=== PATIENT | female | born 1995 | race Caucasian/White ===

== ENCOUNTER 2020-12-10 17:20 | Emergency (ER) | payer OTHER ==
[~2020-12-10] VITALS: Ht 157.5 cm; Wt 69.9 kg
--- NOTE | 2020-12-10 17:26 | NUR ---
PT BIBRA FROM HOME TO ER BED 03, HERE FOR DIZZINESS AND NEAR SYNCOPAL EPISODE. PER EMS INITIAL BLOOD GLUCOSE READ WAS 50. PT ATE A SLICE OF WATER[place]ELON AND HER BG WAS 80 PERSONAL INJURY LEGAL ASSISTANT. PT HYPOTENSIVE B UT PER EMS HER SYSTOLIC BP ALWAYS RUNS LOW. 15 WEEKS . DENIES ANY RELATED COMPLAINTS. AWAITING MD GARCIA.
--- NOTE | 2020-12-10 17:29 | NUR ---
SHRUTIP PA AT BEDSIDE FOR EVAL.
[2020-12-10] MEDS ORDERED: IV NS 0.9% 1,000 ML BAG IV ONE (17:30)
--- NOTE | 2020-12-10 17:50 | NUR ---
U/S TECH AT BEDSIDE FOR PELVIC ULTRASOUND.
[2020-12-10 17:53] LABS: BASOPHILS % (AUTO) 0.4 % (0.0-2.0); EOSINOPHILS % (AUTO) 0.7 % (0.0-6.0); HEMATOCRIT 31 % (33-45); HEMOGLOBIN 10.4 g/dL (11.5-14.8); LYMPHOCYTES # (AUTO) 2.2 K/uL (0.8-4.8); LYMPHOCYTES % (AUTO) 21.6 % (20.0-44.0); MEAN CORPUSCULAR HGB CONC 34 g/dl (31.0-36.0); MEAN CORPUSCULAR VOLUME 86 fL (82-100); MONOCYTES # (AUTO) 0.8 K/uL (0.1-1.30); MONOCYTES % (AUTO) 8.3 % (2.0-12.0); PLATELET COUNT (AUTO) 225 K/uL (150-450); RED BLOOD CELL COUNT(AUTO) 3.61 MIL/uL (4.0-5.2); WHITE BLOOD COUNT (AUTO) 10.2 K/uL (4.3-11.0)
[2020-12-10 18:02] LABS: CALCIUM, SERUM 8.6 mg/dL (8.5-10.1); CREATININE 0.5 mg/dL (0.6-1.3); POTASSIUM 3.7 mmol/L (3.5-5.1)
--- NOTE | 2020-12-10 19:07 | NUR ---
Patient discharged to home in stable condition. Written and verbal after care instructions given. Patient verbalizes understanding of instruction. IV removed. Catheter intact and site benign. Pressure and 4x4 applied to site. No bleeding noted. pT ambulatory with a steady gait
[2020-12-10 19:12] VITALS: BP 100/60
== END 2020-12-10 19:07 | disposition home or self-care (01) ==
LOC: ER 17:48
DX: O99.282 Endocrine, nutritional and metabolic diseases complicating pregnancy, second trimester (principal); R55 Syncope and collapse; E16.2 Hypoglycemia, unspecified; Z3A.15 15 weeks gestation of pregnancy
CPT/HCPCS: 76856; 80048; 84702; 85025; 93005; 96360; 99285; J7030